=== PATIENT | male | born 1935 | race Caucasian/White ===

== ENCOUNTER 2018-08-03 08:40 | Inpatient (IN) ==
--- NOTE | 2018-08-03 08:49 | Emergency Department Note ---
Disposition Clinical Impression: Supratherapeutic INR, Hematuria, Afib Disposition: Admitted As Inpatient Condition: Fair General Adult HPI - General Stated complaint: Dizzy, blood in urine Time Seen by Provider: 08/03/18 08:47 - History of Present Illness HPI Narrative: 82 YO M here for painless hematuria and dizziness, with history of Afib and GI bleed. Patient started having gross hematuria for 1 week. Patient state the whole toilet bowl is red after urinating. Since onset he's been feeling dizzy. Patient denies pain with urination and discharge. He does state that he has increased urinary frequency and urgency. He does not have a history of kidney stones or UTI. Denies fever, N/V, muscle pain, SOB, CP, diaphoresis, night sweats and chills, abdominal pain, changes in bowel movement. He is retired and worked at [employer] in their [employer] for 25 years. Nonsmoker. He is on coumadin. - Related Data Home Medications Medication Instructions Recorded Confirmed Tamsulosin HCl [Flomax] 0.4 mg PO DAILY 07/01/18 08/03/18 Warfarin Sodium 2.5 mg PO WESA 07/01/18 08/03/18 Warfarin Sodium 5 mg PO SUMOTUTHFR 07/01/18 08/03/18 Previous Rx's Medication Instructions Recorded Digoxin [Lanoxin] 0.25 mg PO DAILY #30 tablet 07/04/18 Ferrous Sulfate 325 mg PO BIDWM 30 Days #60 tablet 07/04/18 Metoprolol XL (24 HR) Succ [Toprol 50 mg PO BID 28 Days #120 07/04/18 Xl] tab.er.24h Allergies Allergy/AdvReac Type Severity Reaction Status Date / Time No Known Allergies Allergy Verified 08/03/18 09:12 Past Medical History - Past Medical History Medical history: Reports: atrial fibrillation, hypertension, other Surgical history: Reports: no surgical history Psychiatric history: Reports: no psych history - Social History Smoking Status: Never smoker Smokeless Tobacco Status: No Alcohol use: Reports: none Drug use: Reports: none Physical Exam - General Limitations: no limitations - Head Head exam: atraumatic, normocephalic - Chest Chest inspection: Present: normal inspection, symmetric chest wall rise - Respiratory Respiratory exam: Present: normal lung sounds bilaterally. Absent: respiratory distress, wheezes - Cardiovascular Cardiovascular exam: Present: regular rate, normal rhythm, normal heart sounds - Back Exam Back exam: Absent: CVA tenderness (R), CVA tenderness (L) - Neurological Exam Neurological exam: Present: alert, oriented X3 - Psychiatric Psychiatric exam: Present: normal affect, normal mood Course Course Narrative: 82 YO M here for painless hematuria. Concerned for bladder cancer given painless hematuria. Also considering UTI or prostatitis based on increased urinary frequency. Will rule out cardiac pathology based on age. - Type and cross, CBC, CMP ordered - Abdominal CT - Urinalysis - Troponins, EKG, chest CT ordered - Reevaluation(s) Reevaluation #1: INR was 8 PTT was 89. Gave oral vitamin K 5. - Rectal exam and stool guaic done Reevaluation #2: Stool guaic negative - no bleeding - CT abdomen pelvis shows possible blood in kidneys - Spoke to hospitalist and they are okay to admit patient for supratherapeutic INR and hematuria. - Patient agrees with plan Vital Signs Pulse Rate 102 08/03/18 08:52 Respiratory Rate 18 08/03/18 08:52 Blood Pressure 147/105 08/03/18 08:52 O2 Sat by Pulse Oximetry 100 08/03/18 08:52 Temperature 98.3 F 08/03/18 09:07 Pulse Rate 98 08/03/18 11:03 Respiratory Rate 16 08/03/18 11:03 Blood Pressure 148/108 08/03/18 11:03 O2 Sat by Pulse Oximetry 98 08/03/18 11:03 Oxygen Delivery Oxygen Delivery Room Air Medical Decision Making - Lab Data Result diagrams: 08/03/18 09:20 08/03/18 09:20 Lab Results 08/03/18 08/03/18 08/03/18 Range/Units 09:20 09:20 09:20 WBC 5.7 (4.3-11.1) K/mcL RBC 4.03 L (4.19-5.50) M/mcL Hgb 11.0 L (12.9-16.9) g/dL Hct 33.8 L (37.5-50.1) % MCV 83.9 (83.0-100.0) fL MCH 27.3 L (28.0-33.3) pg MCHC 32.5 (31.6-35.5) g/dL RDW 13.9 (11.5-14.5) % Plt Count 202 (140-400) K/mcL MPV 9.4 (9.4-12.4) fL Immature Gran % 0.4 (0-4) % Seg Neutrophils % 74.7 % Lymphocytes % 9.9 % Monocytes % 9.0 % Eosinophils % 4.9 % Basophils % 1.1 % Neutrophils # 4.2 (1.6-8.9) K/mcL Lymphocytes # 0.6 (0.6-4.6) K/mcL Monocytes # 0.5 (0.0-1.3) K/mcL Eosinophils # 0.3 (0.0-0.6) K/mcL Basophils # 0.1 (0.0-0.2) K/mcL PT (9.4-12.1) Seconds INR Sodium 137 (136-145) mEq/L Potassium 4.2 (3.5-5.1) mEq/L Chloride 102 (98-107) mEq/L Carbon Dioxide 31 H (23-29) mEq/L BUN 14 (8-23) mg/dL Creatinine 0.98 (0.70-1.30) mg/dL Est GFR ( Amer) > 60 (> 60) Est GFR (Non-Af Amer) > 60 (> 60) BUN/Creatinine Ratio 14 (6-26) Glucose 114 H (70-105) mg/dL Calculated Osmolality 285 (280-300) Calcium 9.1 (8.6-10.3) mg/dL Total Bilirubin 1.0 (0.3-1.0) mg/dL AST 15 (13-39) Units/L ALT 11 (7-52) Units/L Alkaline Phosphatase 113 H (34-104) Units/L Troponin I < 0.03 (< 0.04) ng/mL Serum Total Protein 6.6 (6.4-8.9) g/dL Albumin 3.6 (3.5-5.7) g/dL Globulin 3.0 (2.4-3.5) g/dL Albumin/Globulin Ratio 1.2 (1.1-2.2) Stool Occult Bld Scrn (Negative) Digoxin (0.8-2.0) ng/mL Blood Type Antibody Screen 08/03/18 08/03/18 08/03/18 Range/Units 09:20 09:20 09:20 WBC (4.3-11.1) K/mcL RBC (4.19-5.50) M/mcL Hgb (12.9-16.9) g/dL Hct (37.5-50.1) % MCV (83.0-100.0) fL MCH (28.0-33.3) pg MCHC (31.6-35.5) g/dL RDW (11.5-14.5) % Plt Count (140-400) K/mcL MPV (9.4-12.4) fL Immature Gran % (0-4) % Seg Neutrophils % % Lymphocytes % % Monocytes % % Eosinophils % % Basophils % % Neutrophils # (1.6-8.9) K/mcL Lymphocytes # (0.6-4.6) K/mcL Monocytes # (0.0-1.3) K/mcL Eosinophils # (0.0-0.6) K/mcL Basophils # (0.0-0.2) K/mcL PT 89.9 H* (9.4-12.1) Seconds INR 8.0 H* Sodium (136-145) mEq/L Potassium (3.5-5.1) mEq/L Chloride (98-107) mEq/L Carbon Dioxide (23-29) mEq/L BUN (8-23) mg/dL Creatinine (0.70-1.30) mg/dL Est GFR ( Amer) (> 60) Est GFR (Non-Af Amer) (> 60) BUN/Creatinine Ratio (6-26) Glucose (70-105) mg/dL Calculated Osmolality (280-300) Calcium (8.6-10.3) mg/dL Total Bilirubin (0.3-1.0) mg/dL AST (13-39) Units/L ALT (7-52) Units/L Alkaline Phosphatase (34-104) Units/L Troponin I (< 0.04) ng/mL Serum Total Protein (6.4-8.9) g/dL Albumin (3.5-5.7) g/dL Globulin (2.4-3.5) g/dL Albumin/Globulin Ratio (1.1-2.2) Stool Occult Bld Scrn (Negative) Digoxin 1.6 (0.8-2.0) ng/mL Blood Type A POSITIVE Antibody Screen NEGATIVE 08/03/18 Range/Units 10:05 WBC (4.3-11.1) K/mcL RBC (4.19-5.50) M/mcL Hgb (12.9-16.9) g/dL Hct (37.5-50.1) % MCV (83.0-100.0) fL MCH (28.0-33.3) pg MCHC (31.6-35.5) g/dL RDW (11.5-14.5) % Plt Count (140-400) K/mcL MPV (9.4-12.4) fL Immature Gran % (0-4) % Seg Neutrophils % % Lymphocytes % % Monocytes % % Eosinophils % % Basophils % % Neutrophils # (1.6-8.9) K/mcL Lymphocytes # (0.6-4.6) K/mcL Monocytes # (0.0-1.3) K/mcL Eosinophils # (0.0-0.6) K/mcL Basophils # (0.0-0.2) K/mcL PT (9.4-12.1) Seconds INR Sodium (136-145) mEq/L Potassium (3.5-5.1) mEq/L Chloride (98-107) mEq/L Carbon Dioxide (23-29) mEq/L BUN (8-23) mg/dL Creatinine (0.70-1.30) mg/dL Est GFR ( Amer) (> 60) Est GFR (Non-Af Amer) (> 60) BUN/Creatinine Ratio (6-26) Glucose (70-105) mg/dL Calculated Osmolality (280-300) Calcium (8.6-10.3) mg/dL Total Bilirubin (0.3-1.0) mg/dL AST (13-39) Units/L ALT (7-52) Units/L Alkaline Phosphatase (34-104) Units/L Troponin I (< 0.04) ng/mL Serum Total Protein (6.4-8.9) g/dL Albumin (3.5-5.7) g/dL Globulin (2.4-3.5) g/dL Albumin/Globulin Ratio (1.1-2.2) Stool Occult Bld Scrn Negative (Negative) Digoxin (0.8-2.0) ng/mL Blood Type Antibody Screen - EKG Data EKG #1 EKG shows normal: axis, intervals, QRS complexes, ST-T waves Rate: tachycardia Rhythm: A.Fib Interpretation: no acute changes
[2018-08-03 09:39] LABS: Basophils # 0.1 K/mcL (0.0-0.2); Basophils % 1.1 %; Eosinophils # 0.3 K/mcL (0.0-0.6); Eosinophils % 4.9 %; Hematocrit 33.8 % (37.5-50.1); Immature Granulocytes % 0.4 % (0-4); Lymphocytes # 0.6 K/mcL (0.6-4.6); Lymphocytes % 9.9 %; Mean Corpuscular HGB Conc 32.5 g/dL (31.6-35.5); Mean Corpuscular Hemoglobin 27.3 pg (28.0-33.3); Mean Corpuscular Volume 83.9 fL (83.0-100.0); Mean Platelet Volume 9.4 fL (9.4-12.4); Monocytes # 0.5 K/mcL (0.0-1.3); Neutrophils # 4.2 K/mcL (1.6-8.9); Platelet Count 202 K/mcL (140-400); Red Blood Count 4.03 M/mcL (4.19-5.50); Red Cell Distribution Width 13.9 % (11.5-14.5); Segmented Neutrophils % 74.7 %
[2018-08-03 09:48] LABS: Prothrombin Time 89.9 Seconds (9.4-12.1)
[2018-08-03 09:57] LABS: Alanine Aminotransferase 11 Units/L (7-52); Albumin 3.6 g/dL (3.5-5.7); Albumin/Globulin Ratio 1.2 (1.1-2.2); Alkaline Phosphatase 113 Units/L (34-104); Aspartate Amino Transferase 15 Units/L (13-39); BUN/Creatinine Ratio 14 (6-26); Blood Urea Nitrogen 14 mg/dL (8-23); Calcium 9.1 mg/dL (8.6-10.3); Carbon Dioxide 31 mEq/L (23-29); Chloride 102 mEq/L (98-107); Glucose 114 mg/dL (70-105); Osmolality,Calculated 285 (280-300); Potassium 4.2 mEq/L (3.5-5.1); Sodium 137 mEq/L (136-145); Total Protein 6.6 g/dL (6.4-8.9); eGFR For Non-African Americans > 60 (> 60)
[2018-08-03] MEDS ORDERED: *HR* Phytonadione 5 MG TABLET PO ONE (10:15)
--- NOTE | 2018-08-03 11:19 | Emergency Department Note ---
Disposition Clinical Impression: Supratherapeutic INR Hematuria Qualifiers: Hematuria type: gross Qualified Code(s): R31.0 - Gross hematuria Disposition: Admitted As Inpatient Referrals: Yong Mayers DO [Primary Care Provider] - General Adult HPI - General Chief complaint: ED Dizziness Stated complaint: Dizzy, blood in urine Time Seen by Provider: 08/03/18 08:47 Source: EMS Limitations: no limitations - History of Present Illness Pain Scale: 0 - Related Data Home Medications Medication Instructions Recorded Confirmed Tamsulosin HCl [Flomax] 0.4 mg PO DAILY 07/01/18 08/03/18 Warfarin Sodium 2.5 mg PO WESA 07/01/18 08/03/18 Warfarin Sodium 5 mg PO SUMOTUTHFR 07/01/18 08/03/18 Previous Rx's Medication Instructions Recorded Digoxin [Lanoxin] 0.25 mg PO DAILY #30 tablet 07/04/18 Ferrous Sulfate 325 mg PO BIDWM 30 Days #60 tablet 07/04/18 Metoprolol XL (24 HR) Succ [Toprol 50 mg PO BID 28 Days #120 07/04/18 Xl] tab.er.24h Allergies Allergy/AdvReac Type Severity Reaction Status Date / Time No Known Allergies Allergy Verified 08/03/18 09:12 Past Medical History - Past Medical History Medical history: Reports: atrial fibrillation, hypertension, other Surgical history: Reports: no surgical history Psychiatric history: Reports: no psych history - Social History Smoking Status: Never smoker Smokeless Tobacco Status: No Alcohol use: Reports: none Drug use: Reports: none Physical Exam - General Limitations: no limitations General appearance: alert, in no apparent distress Course Vital Signs Pulse Rate 102 08/03/18 08:52 Respiratory Rate 18 08/03/18 08:52 Blood Pressure 147/105 08/03/18 08:52 O2 Sat by Pulse Oximetry 100 08/03/18 08:52 Temperature 98.3 F 08/03/18 09:07 Pulse Rate 98 08/03/18 11:03 Respiratory Rate 16 08/03/18 11:03 Blood Pressure 148/108 08/03/18 11:03 O2 Sat by Pulse Oximetry 98 08/03/18 11:03 Oxygen Delivery Oxygen Delivery Room Air Medical Decision Making - Lab Data Result diagrams: 08/03/18 09:20 08/03/18 09:20 Lab Results 08/03/18 08/03/18 08/03/18 Range/Units 09:20 09:20 09:20 WBC 5.7 (4.3-11.1) K/mcL RBC 4.03 L (4.19-5.50) M/mcL Hgb 11.0 L (12.9-16.9) g/dL Hct 33.8 L (37.5-50.1) % MCV 83.9 (83.0-100.0) fL MCH 27.3 L (28.0-33.3) pg MCHC 32.5 (31.6-35.5) g/dL RDW 13.9 (11.5-14.5) % Plt Count 202 (140-400) K/mcL MPV 9.4 (9.4-12.4) fL Immature Gran % 0.4 (0-4) % Seg Neutrophils % 74.7 % Lymphocytes % 9.9 % Monocytes % 9.0 % Eosinophils % 4.9 % Basophils % 1.1 % Neutrophils # 4.2 (1.6-8.9) K/mcL Lymphocytes # 0.6 (0.6-4.6) K/mcL Monocytes # 0.5 (0.0-1.3) K/mcL Eosinophils # 0.3 (0.0-0.6) K/mcL Basophils # 0.1 (0.0-0.2) K/mcL PT (9.4-12.1) Seconds INR Sodium 137 (136-145) mEq/L Potassium 4.2 (3.5-5.1) mEq/L Chloride 102 (98-107) mEq/L Carbon Dioxide 31 H (23-29) mEq/L BUN 14 (8-23) mg/dL Creatinine 0.98 (0.70-1.30) mg/dL Est GFR ( Amer) > 60 (> 60) Est GFR (Non-Af Amer) > 60 (> 60) BUN/Creatinine Ratio 14 (6-26) Glucose 114 H (70-105) mg/dL Calculated Osmolality 285 (280-300) Calcium 9.1 (8.6-10.3) mg/dL Total Bilirubin 1.0 (0.3-1.0) mg/dL AST 15 (13-39) Units/L ALT 11 (7-52) Units/L Alkaline Phosphatase 113 H (34-104) Units/L Troponin I < 0.03 (< 0.04) ng/mL Serum Total Protein 6.6 (6.4-8.9) g/dL Albumin 3.6 (3.5-5.7) g/dL Globulin 3.0 (2.4-3.5) g/dL Albumin/Globulin Ratio 1.2 (1.1-2.2) Stool Occult Bld Scrn (Negative) Digoxin (0.8-2.0) ng/mL Blood Type Antibody Screen 08/03/18 08/03/18 08/03/18 Range/Units 09:20 09:20 09:20 WBC (4.3-11.1) K/mcL RBC (4.19-5.50) M/mcL Hgb (12.9-16.9) g/dL Hct (37.5-50.1) % MCV (83.0-100.0) fL MCH (28.0-33.3) pg MCHC (31.6-35.5) g/dL RDW (11.5-14.5) % Plt Count (140-400) K/mcL MPV (9.4-12.4) fL Immature Gran % (0-4) % Seg Neutrophils % % Lymphocytes % % Monocytes % % Eosinophils % % Basophils % % Neutrophils # (1.6-8.9) K/mcL Lymphocytes # (0.6-4.6) K/mcL Monocytes # (0.0-1.3) K/mcL Eosinophils # (0.0-0.6) K/mcL Basophils # (0.0-0.2) K/mcL PT 89.9 H* (9.4-12.1) Seconds INR 8.0 H* Sodium (136-145) mEq/L Potassium (3.5-5.1) mEq/L Chloride (98-107) mEq/L Carbon Dioxide (23-29) mEq/L BUN (8-23) mg/dL Creatinine (0.70-1.30) mg/dL Est GFR ( Amer) (> 60) Est GFR (Non-Af Amer) (> 60) BUN/Creatinine Ratio (6-26) Glucose (70-105) mg/dL Calculated Osmolality (280-300) Calcium (8.6-10.3) mg/dL Total Bilirubin (0.3-1.0) mg/dL AST (13-39) Units/L ALT (7-52) Units/L Alkaline Phosphatase (34-104) Units/L Troponin I (< 0.04) ng/mL Serum Total Protein (6.4-8.9) g/dL Albumin (3.5-5.7) g/dL Globulin (2.4-3.5) g/dL Albumin/Globulin Ratio (1.1-2.2) Stool Occult Bld Scrn (Negative) Digoxin 1.6 (0.8-2.0) ng/mL Blood Type A POSITIVE Antibody Screen NEGATIVE 08/03/18 Range/Units 10:05 WBC (4.3-11.1) K/mcL RBC (4.19-5.50) M/mcL Hgb (12.9-16.9) g/dL Hct (37.5-50.1) % MCV (83.0-100.0) fL MCH (28.0-33.3) pg MCHC (31.6-35.5) g/dL RDW (11.5-14.5) % Plt Count (140-400) K/mcL MPV (9.4-12.4) fL Immature Gran % (0-4) % Seg Neutrophils % % Lymphocytes % % Monocytes % % Eosinophils % % Basophils % % Neutrophils # (1.6-8.9) K/mcL Lymphocytes # (0.6-4.6) K/mcL Monocytes # (0.0-1.3) K/mcL Eosinophils # (0.0-0.6) K/mcL Basophils # (0.0-0.2) K/mcL PT (9.4-12.1) Seconds INR Sodium (136-145) mEq/L Potassium (3.5-5.1) mEq/L Chloride (98-107) mEq/L Carbon Dioxide (23-29) mEq/L BUN (8-23) mg/dL Creatinine (0.70-1.30) mg/dL Est GFR ( Amer) (> 60) Est GFR (Non-Af Amer) (> 60) BUN/Creatinine Ratio (6-26) Glucose (70-105) mg/dL Calculated Osmolality (280-300) Calcium (8.6-10.3) mg/dL Total Bilirubin (0.3-1.0) mg/dL AST (13-39) Units/L ALT (7-52) Units/L Alkaline Phosphatase (34-104) Units/L Troponin I (< 0.04) ng/mL Serum Total Protein (6.4-8.9) g/dL Albumin (3.5-5.7) g/dL Globulin (2.4-3.5) g/dL Albumin/Globulin Ratio (1.1-2.2) Stool Occult Bld Scrn Negative (Negative) Digoxin (0.8-2.0) ng/mL Blood Type Antibody Screen Attestation Statement - Attestation Attestation: I examined this patient and my medical decision-making was reviewed with the Resident Physician. I agree with the documented findings, disposition and treatment plan as described except to the extent set forth below. 82 year old male prsents to the Ed iwth complaints of hematuria and abdominal pian and is currently on coumadin. PAtinet states that this has hapened in the past and was msot recently evlauated fora GI bleed although the rectal exam today is negative for occult blood. Patient has an INRof 8 and gross hematuria on exam and is a fall risk at home. We will admit to medicine. vitamin K PO 5mg given
[2018-08-03] MEDS ORDERED: Naloxone 0.4 MG/ML INJ IVP PRN (13:44)
--- NOTE | 2018-08-03 14:12 | Internal Med History&Physical ---
Date of Encounter: 08/03/18 Time of Encounter: 13:15 Internal Medicine - H&P: HPI Chief complaint: Hematuria Admitted From: Home Plans for Post Hospital Care: Home History of present illness: Mr. Reich is a 82 year old male with past medical history significant for atrial fibrillation, hypertension, and BPH who presents for 7-10 day history of blood in his urine getting progressively worse. Denies any clots in urine. No dysuria but does say he has had urinary frequency since he started noticing the blood. Also complains of intermittent dizziness since noticing the blood. Denies any chest pain, abdominal pain, or shortness of breath. No blood in stool reported, last bowel movement was today. Patient on coumadin for afib but states it has been around 30 days since last INR check. Was recently admitted to hospital and son was supposed to start living with patient upon discharge but patient reports he is still living alone. Also reports he has had a decreased appetite and has noticed six pound weight loss in the last month. Discussed patient with Dr Goodman. Past Med Surg Social Fam HX - Past Medical History Medical history: atrial fibrillation, hypertension, other Additional medical history: BPH Psychiatric history: no psych history - Past Surgical History Surgical History: no surgical history - Social History Smoking Status: Never smoker Smokeless Tobacco Status: No Alcohol use: none Drug use: none - Family History Father Living Status: Mother Living Status: Internal Medicine - H&P: Meds Tamsulosin HCl [Flomax] 0.4 mg PO DAILY 07/01/18 [History] Warfarin Sodium 2.5 mg PO WESA 07/01/18 [History] Warfarin Sodium 5 mg PO SUMOTUTHFR 07/01/18 [History] Digoxin [Lanoxin] 0.25 mg PO DAILY #30 tablet 07/04/18 [Rx] Ferrous Sulfate 325 mg PO BIDWM 30 Days #60 tablet 07/04/18 [Rx] Metoprolol XL (24 HR) Succ [Toprol Xl] 50 mg PO BID 28 Days #120 tab.er.24h [Rx] 3 Allergy/AdvReac Type Severity Reaction Status Date / Time No Known Allergies Allergy Verified 08/03/18 09:12 All Systems PM: A 10-system review of systems was performed and is negative for pertinent findings except as documented above in the HPI. - Constitutional Vitals: Temp Pulse Resp BP Pulse Ox 98.1 F 91 14 165/72 96 08/03/18 13:07 08/03/18 13:07 08/03/18 13:07 08/03/18 13:07 08/03/18 13:07 Exam: General: Alert and oriented. Skin:Normal color, no rash, no lesions. HEENT:EOM, pupils equal, round and reactive. Cardiovascular:Irregular rhythm, no rubs, murmurs or gallops. No JVD. Lungs:Normal breath sounds, no wheezes or crackles. Abdomen:Soft, non-tender, no rigidity. Extremities:No deformity, no edema or tenderness, no joint swelling or clubbing. Neurological:Normal cognition and motor skills. Pulses:Carotid and radial pulses normal +2. Rest of the physical exam is non contributory. Internal Med - H&P Results - Labs CBC & Chem 7: 08/03/18 09:20 08/03/18 09:20 - Assessment and plan (1) Supratherapeutic INR Current Visit: Yes Status: Acute Assessment and plan: Mephyton given in ER. Repeat labs in a.m. Hold coumadin. Up with assist only. Stool guiac negative. Will need INR teaching if coumadin restarted. (2) Hematuria Current Visit: Yes Status: Acute Assessment and plan: Continue to encourage to urinate. Monitor for any other urinary changes including clots in urine. If not resolved with supratherapeutic INR plan as above, will need urology consult. Qualifiers: Hematuria type: gross Qualified Code(s): R31.0 - Gross hematuria (3) Weight loss Current Visit: Yes Status: Acute Assessment and plan: Nutrition consulted for reported decreased appetite with weight loss. Encourage oral intake. (4) Risk for falls Current Visit: Yes Status: Chronic Assessment and plan: Pt consulted. manager creative services consulted for possible home health services and safe discharge arrangements. (5) UTI (urinary tract infection) Current Visit: Yes Status: Suspected Assessment and plan: Urinalysis ordered due to reported urinary frequency. Qualifiers: Urinary tract infection type: site unspecified Hematuria presence: with hematuria Qualified Code(s): N39.0 - Urinary tract infection, site not specified; R31.9 - Hematuria, unspecified - Time Spent With Patient Total time spent is greater than 50% in coordination of care (as documented) at patient's floor/unit and/or counseling patient:
[2018-08-03] MEDS: Ondansetron 4 MG/2 ML VIAL IVP PRN (18:08)
[2018-08-03] MEDS: Metoprolol XL (24 HR) Succ 50 MG TAB.ER.24H PO SCH (20:51)
[2018-08-03 21:37] LABS: Bilirubin,Urine Small (Negative); Blood,Urine Large (Negative); Clarity,Urine Cloudy (Clear); Color,Urine Red (Yellow); Glucose,Urine (UA) Normal (Normal); Ketones,Urine Trace mg/dL (Negative); Leukocyte Esterase,Urine Trace (Negative); Nitrite,Urine Negative (Negative); Protein,Urine 100 mg/dL (Neg-Trace); Specific Gravity,Urine 1.009 (1.010-1.025); Urobilinogen,Urine Normal (Normal)
[2018-08-04] MEDS: Ondansetron 4 MG/2 ML VIAL IVP PRN ×2 (01:23→09:40)
[2018-08-04 07:33] LABS: Basophils % 0.2 %; Hematocrit 36.1 % (37.5-50.1); Hemoglobin 11.7 g/dL (12.9-16.9); Immature Granulocytes % 0.4 % (0-4); Lymphocytes # 0.7 K/mcL (0.6-4.6); Lymphocytes % 6.6 %; Mean Corpuscular HGB Conc 32.4 g/dL (31.6-35.5); Mean Corpuscular Hemoglobin 27.1 pg (28.0-33.3); Mean Corpuscular Volume 83.6 fL (83.0-100.0); Mean Platelet Volume 9.6 fL (9.4-12.4); Monocytes # 0.6 K/mcL (0.0-1.3); Monocytes % 5.8 %; Neutrophils # 8.6 K/mcL (1.6-8.9); Platelet Count 262 K/mcL (140-400); Red Blood Count 4.32 M/mcL (4.19-5.50); Red Cell Distribution Width 13.8 % (11.5-14.5)
[2018-08-04 07:42] LABS: INR 4.9; Prothrombin Time 55.8 Seconds (9.4-12.1)
[2018-08-04 07:55] LABS: BUN/Creatinine Ratio 18 (6-26); Blood Urea Nitrogen 17 mg/dL (8-23); Calcium 9.4 mg/dL (8.6-10.3); Carbon Dioxide 29 mEq/L (23-29); Chloride 102 mEq/L (98-107); Glucose 141 mg/dL (70-105); Osmolality,Calculated 290 (280-300); Potassium 4.3 mEq/L (3.5-5.1); Sodium 138 mEq/L (136-145); eGFR For Non-African Americans > 60 (> 60)
[2018-08-04] MEDS ORDERED: *HR* Digoxin 0.25 MG TABLET PO SCH (09:00)
[2018-08-04] MEDS: Metoprolol XL (24 HR) Succ 50 MG TAB.ER.24H PO SCH (09:40)
[2018-08-04] MEDS ORDERED: Acetaminophen 325 MG TABLET PO PRN (12:28)
--- NOTE | 2018-08-04 13:00 | Internal Med Progress Note ---
Hospitalist Progress Note - Encounter Date of Encounter: 08/04/18 Time of Encounter: 12:58 - Subjective Interval History: Pt's oldest daughter at bedside and states pt has slowly deteriorated since the passing of their mother. States pt has had increasing memory changes. He is reporting a ANDRADE today 06/20. Family unsure if he fell or not. He denies fever, chills, N/V or diarrhea. Denies CP or SOB. - Exam Vitals: Temp Pulse Resp BP Pulse Ox 98.3 F 107 16 149/79 98 08/04/18 11:53 08/04/18 11:53 08/04/18 11:53 08/04/18 11:53 08/04/18 11:53 Exam: General: Alert and oriented. Skin:Normal color, no rash, no lesions. HEENT:EOM, pupils equal, round and reactive. Cardiovascular:Irregularly irregular rhythm, no rubs, murmurs or gallops. No JVD. Lungs:Normal breath sounds, no wheezes or crackles. Abdomen:Soft, non-tender, no rigidity. Extremities:No deformity, no edema or tenderness, no joint swelling or clubbing. Neurological:Normal cognition and motor skills. Pulses:Carotid and radial pulses normal +2. Rest of the physical exam is non contributory. - Assessment and Plan (1) Hematuria Current Visit: Yes Status: Acute Assessment and Plan: INR supra therapeutic. Given reversal in ED. Will continue to monitor urinary out put. Consulting urology. (2) Supratherapeutic INR Current Visit: Yes Status: Acute Assessment and Plan: INR on admission 8.0 down to 4.9 this am. Given reversal, Mephyotn, in ED. Positive hematuria but stool guiac neg. (3) Altered mental status Current Visit: Yes Status: Acute Assessment and Plan: Daughter states he appears to be more confused than usual. (4) Weight loss Current Visit: Yes Status: Acute Assessment and Plan: Family reports 6lbs weight loss and decreased appetite. Consult nib adjuster. (5) Risk for falls Current Visit: Yes Status: Chronic Assessment and Plan: fall precaution (6) Afib Current Visit: Yes Status: Chronic Assessment and Plan: On Digoxin and Coumadin but Coumadin on hold for now. (7) Acute blood loss anemia Current Visit: Yes Status: Acute Assessment and Plan: Hgb stable at the moment at 11.0. Will continue to monitor. (8) BPH (benign prostatic hyperplasia) Current Visit: Yes Status: Acute Assessment and Plan: On flomax and adding Proscar. Consulting Urology to see. DVT Prophylaxis: On Coumadin but on hold. - Summary of Assessment and Plan Summary of Assessment and Plan: Mr. Reich is a 82 year old male with past medical history significant for atrial fibrillation, hypertension, and BPH who presents for 7-10 day history of blood in his urine getting progressively worse. Denies any clots in urine. No dysuria but does say he has had urinary frequency since he started noticing the blood. Also complains of intermittent dizziness since noticing the blood. He is on flomax for BPH. He also on Coumadin for afib. - Time Spent with Patient Total time spent is greater than 50% in coordination of care (as documented) at patient's floor/unit and/or counseling patient: 25 - 35 minutes Plan of Care Discussed with: patient Internal Medicine: Result - Labs CBC & Chem 7: 08/04/18 07:03 08/04/18 07:03 Labs: Short CBC 08/04/18 Range/Units 07:03 WBC 9.9 D (4.3-11.1) K/mcL Hgb 11.7 L (12.9-16.9) g/dL Hct 36.1 L (37.5-50.1) % Plt Count 262 (140-400) K/mcL Neutrophils # 8.6 (1.6-8.9) K/mcL BMP 08/04/18 07:03 Sodium 138 Potassium 4.3 Chloride 102 Carbon Dioxide 29 BUN 17 Creatinine 0.96 Glucose 141 H Calcium 9.4 Urine 08/03/18 Range/Units 20:23 Urine Color Red A (Yellow) Urine Clarity Cloudy A (Clear) Urine pH 6.0 (5.0-8.0) pH Units Ur Specific [place] 1.009 L (1.010-1.025) Urine Protein 100 H (Neg-Trace) mg/dL Urine Glucose (UA) Normal (Normal) mg/dL - ABG Interpretation ABG results: PT/INR, D-dimer PT 55.8 Seconds (9.4-12.1) H* 08/04/18 07:03 Consult Discharge Plan - Plan Referrals: Yong Mayers DO [Primary Care Provider] - (1) Hematuria Qualifiers: Hematuria type: gross Qualified Code(s): R31.0 - Gross hematuria
--- NOTE | 2018-08-04 13:55 | Event Note ---
Date of Encounter: 08/04/18 Time of Encounter: 13:53 went to see patient on 3a. he was at CT scan and not in the room. reviewed CT scan abd/pelvis. large prostate. no other concerning Gu findings. talked to hospitalists. start finasteride, hold coumadin if possible will see pt for official consult tomorrow.
[2018-08-04] MEDS ORDERED: Isovue-370 500 ML INFUS..BTL IV ONE (14:46)
--- NOTE | 2018-08-04 14:53 | Urology - Consult Note ---
<Krupa Jara N - Last Filed: 08/04/18 14:46> Date of Encounter: 08/04/18 Time of Encounter: 14:46 - Assessment and Plan (1) Hematuria Current Visit: Yes Status: Acute Assessment and plan: Patient is an 82-year-old male who presents with a history of gross hematuria. I explained to the family that the hematuria is likely due to the markedly elevated INR and increased vascularity from the enlarged prostate. Due to the recent finding of a large brain mass, the patient's family is aware that he will likely be transferred to a facility that has neurosurgical specialty available. I placed an order to collect serial urine samples to evaluate progression of hematuria. I encouraged hydration and anticipate hematuria to improve as the PT and INR improve. Qualifiers: Hematuria type: gross Qualified Code(s): R31.0 - Gross hematuria Urology CN:HPI Consult date: 08/04/18 Reason for consult Urology: Gross Hematuria History of present illness: Patient is an 82-year-old male who presents with a history of gross hematuria. Patient has a history of atrial fibrillation, and he is being managed with Coumadin. Patient has not had INR checked for greater than 30 days, and on admission, INR is markedly elevated at 8, PT 89.9. Patient does not have a smoking history, and this is the first instance of gross blood in the urine. Patient denies history of renal stones. Patient is voiding without difficulty, and urine is fluctuating between fruit punch and pink lemonade tinged. Patient denies passing any blood clots or ketchup appearance to urine. Patient has undergone CT of the abdomen and pelvis which does reveal an enlarged prostate, otherwise is unremarkable for the genitourinary system. During history and physical examination, the patient is sleeping, and the majority of his history was collected from his 2 daughters and friend present at bedside. 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 Patient will likely be transferred to a hospital with neurosurgical availability. Past Med Surg Social Fam HX - Past Medical History Medical history: atrial fibrillation, hypertension, other Additional medical history: BPH Psychiatric history: no psych history - Past Surgical History Surgical History: no surgical history - Social History Smoking Status: Never smoker Smokeless Tobacco Status: No Alcohol use: none Drug use: none - Family History Father Living Status: Mother Living Status: Medications and Allergies Tamsulosin HCl [Flomax] 0.4 mg PO DAILY 07/01/18 [History] Digoxin [Lanoxin] 0.25 mg PO DAILY #30 tablet 07/04/18 [Rx] Ferrous Sulfate 325 mg PO BIDWM 30 Days #60 tablet 07/04/18 [Rx] Metoprolol XL (24 HR) Succ [Toprol Xl] 50 mg PO BID 28 Days #120 tab.er.24h [Rx] Finasteride [Proscar] 5 mg PO DAILY tablet 08/04/18 [Rx] 3 Allergy/AdvReac Type Severity Reaction Status Date / Time No Known Allergies Allergy Verified 08/03/18 09:12 Review of Systems - Constitutional fatigue, no chills, no fever(s) - EENT Nose, mouth and throat: headache(s), no dizziness - Cardiovascular no chest pain, no diaphoresis, no dyspnea - Respiratory no cough, no dyspnea - Gastrointestinal no abdominal pain, no nausea, no vomiting - Genitourinary hematuria, no change in urinary stream, no difficulty urinating, no dysuria, no flank pain, no urinary frequency, no urinary hesitancy, no urinary urgency - Musculoskeletal no back pain, no muscle weakness - Integumentary unusual bruising, no erythema, no rash - Neurological confusion, weakness, no syncope - Psychiatric confusion, no anxiety - Hematologic/Lymphatic easy bleeding, easy bruising - Allergic/Immunologic no throat swelling, no wheezing Exam Initial Vital Signs Pulse Resp BP Pulse Ox 102 18 147/105 100 08/03/18 08:52 08/03/18 08:52 08/03/18 08:52 08/03/18 08:52 - General physical appearance Present: well developed, no distress, no pain - Eyes Present: PERRL, normal ocular movement - ENT Present: normal nares, no hearing loss, no congestion - Neck Present: no masses, trachea midline - Respiratory Present: normal respiratory effort - Cardiovascular Cardiovascular exam IM: RRR - Abdomen Abdomen: Present: soft, non tender - Integumentary Present: no rash, no abnormal pigmentation Urology Results - Labs 08/04/18 07:03 08/04/18 07:03 Abnormal lab results Hgb 11.7 g/dL (12.9-16.9) L 08/04/18 07:03 Hct 36.1 % (37.5-50.1) L 08/04/18 07:03 MCH 27.1 pg (28.0-33.3) L 08/04/18 07:03 PT 55.8 Seconds (9.4-12.1) H* 08/04/18 07:03 INR 4.9 H* 08/04/18 07:03 Glucose 141 mg/dL (70-105) H 08/04/18 07:03 Alkaline Phosphatase 113 Units/L (34-104) H 08/03/18 09:20 Ur Specimen Adequacy See below A 08/03/18 20:23 Urine Color Red (Yellow) A 08/03/18 20:23 Urine Clarity Cloudy (Clear) A 08/03/18 20:23 Ur Specific [place] 1.009 (1.010-1.025) L 08/03/18 20:23 Urine Protein 100 mg/dL (Neg-Trace) H 08/03/18 20:23 Urine Ketones Trace mg/dL (Negative) H 08/03/18 20:23 Urine Blood Large (Negative) H 08/03/18 20:23 Urine Bilirubin Small (Negative) H 08/03/18 20:23 Ur Leukocyte Esterase Trace (Negative) H 08/03/18 20:23 Diabetes panel 08/04/18 Range/Units 07:03 Sodium 138 (136-145) mEq/L Potassium 4.3 (3.5-5.1) mEq/L Chloride 102 (98-107) mEq/L Carbon Dioxide 29 (23-29) mEq/L BUN 17 (8-23) mg/dL Creatinine 0.96 (0.70-1.30) mg/dL Glucose 141 H (70-105) mg/dL Calcium 9.4 (8.6-10.3) mg/dL Calcium panel 08/04/18 Range/Units 07:03 Calcium 9.4 (8.6-10.3) mg/dL Pituitary panel 08/04/18 Range/Units 07:03 Sodium 138 (136-145) mEq/L Potassium 4.3 (3.5-5.1) mEq/L Chloride 102 (98-107) mEq/L Carbon Dioxide 29 (23-29) mEq/L BUN 17 (8-23) mg/dL Creatinine 0.96 (0.70-1.30) mg/dL Glucose 141 H (70-105) mg/dL Calcium 9.4 (8.6-10.3) mg/dL Adrenal panel 08/04/18 Range/Units 07:03 Sodium 138 (136-145) mEq/L Potassium 4.3 (3.5-5.1) mEq/L Chloride 102 (98-107) mEq/L Carbon Dioxide 29 (23-29) mEq/L BUN 17 (8-23) mg/dL Creatinine 0.96 (0.70-1.30) mg/dL Glucose 141 H (70-105) mg/dL Calcium 9.4 (8.6-10.3) mg/dL All other labs normal. - Imaging CT scan - abdomen: report reviewed, image reviewed CT scan - pelvis: report reviewed, image reviewed Consult Discharge Plan - Plan Referrals: Yong Mayers DO [Primary Care Provider] - <Adan Cervantes - Last Filed: 08/04/18 18:13> Date of Encounter: 08/04/18 - Assessment and Plan (1) Hematuria Current Visit: Yes Status: Acute Assessment and plan: pt seen and examined with PA. due to recent findings of a brain tumor pt is being transferred to [facility]. Defer all urologic intervention to outside facility. My plan was to start finasteride and follow the urine once his INR normalized. If the hematuria did not stop he would have potentially required a catheter placement or cystoscopy while hospitalized. I strongly suspect the hematuria was from BPH with Coumadin toxicity. At some point he would require cystoscopy for further evaluation but we will defer at this point. Qualifiers: Hematuria type: gross Qualified Code(s): R31.0 - Gross hematuria Exam Initial Vital Signs Pulse Resp BP Pulse Ox 102 18 147/105 100 08/03/18 08:52 08/03/18 08:52 08/03/18 08:52 08/03/18 08:52 Urology Results - Labs 08/04/18 07:03 08/04/18 07:03 Abnormal lab results Hgb 11.7 g/dL (12.9-16.9) L 08/04/18 07:03 Hct 36.1 % (37.5-50.1) L 08/04/18 07:03 MCH 27.1 pg (28.0-33.3) L 08/04/18 07:03 PT 55.8 Seconds (9.4-12.1) H* 08/04/18 07:03 INR 4.9 H* 08/04/18 07:03 Glucose 141 mg/dL (70-105) H 08/04/18 07:03 Alkaline Phosphatase 113 Units/L (34-104) H 08/03/18 09:20 Ur Specimen Adequacy See below A 08/03/18 20:23 Urine Color Red (Yellow) A 08/03/18 20:23 Urine Clarity Cloudy (Clear) A 08/03/18 20:23 Ur Specific [place] 1.009 (1.010-1.025) L 08/03/18 20:23 Urine Protein 100 mg/dL (Neg-Trace) H 08/03/18 20:23 Urine Ketones Trace mg/dL (Negative) H 08/03/18 20:23 Urine Blood Large (Negative) H 08/03/18 20:23 Urine Bilirubin Small (Negative) H 08/03/18 20:23 Ur Leukocyte Esterase Trace (Negative) H 08/03/18 20:23 Diabetes panel 08/04/18 Range/Units 07:03 Sodium 138 (136-145) mEq/L Potassium 4.3 (3.5-5.1) mEq/L Chloride 102 (98-107) mEq/L Carbon Dioxide 29 (23-29) mEq/L BUN 17 (8-23) mg/dL Creatinine 0.96 (0.70-1.30) mg/dL Glucose 141 H (70-105) mg/dL Calcium 9.4 (8.6-10.3) mg/dL Calcium panel 08/04/18 Range/Units 07:03 Calcium 9.4 (8.6-10.3) mg/dL Pituitary panel 08/04/18 Range/Units 07:03 Sodium 138 (136-145) mEq/L Potassium 4.3 (3.5-5.1) mEq/L Chloride 102 (98-107) mEq/L Carbon Dioxide 29 (23-29) mEq/L BUN 17 (8-23) mg/dL Creatinine 0.96 (0.70-1.30) mg/dL Glucose 141 H (70-105) mg/dL Calcium 9.4 (8.6-10.3) mg/dL Adrenal panel 08/04/18 Range/Units 07:03 Sodium 138 (136-145) mEq/L Potassium 4.3 (3.5-5.1) mEq/L Chloride 102 (98-107) mEq/L Carbon Dioxide 29 (23-29) mEq/L BUN 17 (8-23) mg/dL Creatinine 0.96 (0.70-1.30) mg/dL Glucose 141 H (70-105) mg/dL Calcium 9.4 (8.6-10.3) mg/dL All other labs normal.
--- NOTE | 2018-08-04 16:23 | Discharge Summary ---
- NOTES TO OUTPATIENT PROVIDER Notes to Outpatient Provider: PCP in 5 to 7 days Orders not resulted at time of discharge: Pending orders 08/04/18 MR head/brain wo/w con [MR] Stat 08/04/18 15:43 PLASMA [BBK] Stat Date of Encounter: 08/04/18 Time of Encounter: 16:21 - Discharge Diagnosis (1) Brain bleed Priority: Primary Status: Acute Assessment and Plan: Pt's daughter noted that pt has been increasingly confused. Pt was also reported to be having 8/10 headache. STAT non-contrast CT head this morning showed hemorrhagic 5 cm brain mass. Discussed with radiologist and recommending MRI brain. Will check MRI brain without and with contrast. Discussed with family and recommend transfer to facility with neuro surgeon. Family requesting transfer to [facility]. Neuro surgeon, Dr. Arce accepted the patient to [facility]. STAT Non-contrast CT head CT/CT head/brain wo con IMPRESSION: 5 cm left cerebellar hemorrhagic mass. The differential includes hemorrhagic primary brain neoplasm and solitary metastasis. MRI brain MR/MR head/brain wo/w con IMPRESSION: 1. Acute left cerebellar intraparenchymal hematoma measuring 5.1 x 3.7 x 3.3 cm. Surrounding vasogenic edema and mass effect with partial effacement of the 4th ventricle. No evidence of hydrocephalus. No enhancement within the mass. 7 mm rightward shift of the midline cerebellum. 2. Parenchymal volume loss and sequela of mild chronic microvascular ischemic changes. The findings were sent to the Radiology Results Communication [facility] at 4:40 pm on 08/04/2018to be communicated to a licensed caregiver. D/ / 08/04/2018 17:33:26 Ivelisse Zelaya MD / reinaldo (2) Supratherapeutic INR Priority: Primary Status: Acute Assessment and Plan: INR on admission 8.0 down to 4.9 this am. Given reversal, Mephyotn, in ED. Positive hematuria but stool guiac neg. Will give 4 units of FFP STAT and recheck INR (3) Altered mental status Priority: Primary Status: Acute Assessment and Plan: Pt's mentation is worse per daughter. CT brain showing mass and hemorrhage. MRI brain as above. Family denies any previous hxx of cancer they are aware of. Qualifiers: Qualified Code(s): R41.82 - Altered mental status, unspecified (4) Risk for falls Priority: Secondary Status: Chronic Assessment and Plan: fall precaution. (5) Afib Priority: Secondary Status: Chronic Assessment and Plan: Coumadin on hold. Giving pt 4 units of FPF for reversal. Qualifiers: Qualified Code(s): I48.91 - Unspecified atrial fibrillation (6) Acute blood loss anemia Priority: Secondary Status: Acute Assessment and Plan: Hgb stable at the moment at 11.0. Will continue to monitor. (7) Hematuria Priority: Primary Status: Acute Assessment and Plan: Seen by Urology service and monitoring. Qualifiers: Hematuria type: gross Qualified Code(s): R31.0 - Gross hematuria (8) BPH (benign prostatic hyperplasia) Priority: Secondary Status: Acute Assessment and Plan: On Flomax and Proscar Qualifiers: Qualified Code(s): N40.0 - Benign prostatic hyperplasia without lower urinary tract symptoms (9) Weight loss Priority: Secondary Status: Acute Assessment and Plan: Family reports 6lbs weight loss and decreased appetite. Consult fork repairer. Hospital course: Mr. Reich is a 82 year old male with past medical history significant for atrial fibrillation, hypertension, and BPH who presents for 7-10 day history of blood in his urine getting progressively worse. Denies any clots in urine. No dysuria but does say he has had urinary frequency since he started noticing the blood. Also complains of intermittent dizziness since noticing the blood. He is on flomax for BPH. He also on Coumadin for afib. STAT NON-contrast CT head IMPRESSION: 5 cm left cerebellar hemorrhagic mass. The differential includes hemorrhagic primary brain neoplasm and solitary metastasis. MRI brain without and with contrast MR/MR head/brain wo/w con IMPRESSION: 1. Acute left cerebellar intraparenchymal hematoma measuring 5.1 x 3.7 x 3.3 cm. Surrounding vasogenic edema and mass effect with partial effacement of the 4th ventricle. No evidence of hydrocephalus. No enhancement within the mass. 7 mm rightward shift of the midline cerebellum. 2. Parenchymal volume loss and sequela of mild chronic microvascular ischemic changes. The findings were sent to the Radiology Results Communication Center at 4:40 pm on 08/04/2018to be communicated to a licensed caregiver. Discharge discussed with: patient - Time Spent with Patient Total time spent providing and/or coordinating discharge services: Greater than 30 minutes - Discharge Medications Home Medications: Tamsulosin HCl [Flomax] 0.4 mg PO DAILY 07/01/18 [History] Digoxin [Lanoxin] 0.25 mg PO DAILY #30 tablet 07/04/18 [Rx] Ferrous Sulfate 325 mg PO BIDWM 30 Days #60 tablet 07/04/18 [Rx] Metoprolol XL (24 HR) Succ [Toprol Xl] 50 mg PO BID 28 Days #120 tab.er.24h [Rx] Finasteride [Proscar] 5 mg PO DAILY tablet 08/04/18 [Rx] Allergies/Adverse Reactions: 3 Allergy/AdvReac Type Severity Reaction Status Date / Time No Known Allergies Allergy Verified 08/03/18 09:12 Date of admission: 08/03/18 17:24 Primary care physician: Herman Mayers DO Consults: 08/04/18 13:04 Consult to Urology [CONS] Routine Consulting Provider: [facility] Reason for Consult: hematuria and enlarge protsate Call Completed: Yes Discharging clinician: Danelle Damico Anticipated date of discharge: 08/04/18 - Constitutional Vitals: Temp Pulse Resp BP Pulse Ox 98.3 F 107 16 149/79 98 08/04/18 11:53 08/04/18 11:53 08/04/18 11:53 08/04/18 11:53 08/04/18 11:53 General appearance: Present: A&O X 3, no acute distress Exam: acute distress - Head Head exam: Present: atraumatic, normocephalic - Eye Eye exam: Present: conjuntiva pink, sclera anicteric Additional comments: Pupils reactive but not equal. - Neck Neck exam general surgery: Present: supple, trachea midline. Absent: lymphadenopathy - Respiratory Respiratory exam: Present: CTAB. Absent: accessory muscle use, rales, rhonchi, wheezes - Cardiovascular Cardiovascular exam: Present: RRR, +S1, +S2. Absent: diastolic murmur, gallop, rubs, systolic murmur - GI/Abdominal GI/Abdominal exam: Present: normal bowel sounds, soft, no peritoneal signs. Absent: distended, tenderness - Extremities Exam Extremities exam: Present: warm, radial pulses palpable and symmetrical. Absent : calf tenderness, cyanotic, pedal edema - Neurological Exam Neurological exam: Present: oriented X3. Absent: pronater drift, facial droop, speech deficit Additional comments: Pt has has decreased muscle strength and unsteady gait. Requiring moderate assist - Skin Skin exam: Present: dry, intact - Patient Status Disposition: Transfer Intermediate Care Fac Condition: Serious Overall status at discharge: patient is not back to baseline - Discharge Instructions Follow Up With: Yong Mayers DO [Primary Care Provider] - Forms: ED Satisfaction Letter - Diet and Activity Activity: as per physical therapy Diet: advance to your usual diet
--- NOTE | 2018-08-04 17:27 | Electrocardiograph Report ---
[address] [place] [address] Test Date: 2018-08-03 Pat Name: Kamron Reich Department: [id number] Room: 3A12 Gender: M Transcribing Operators Supervisor: : [id number] Requested By: Chaparro Avila Order Number: [id number] Reading MD: Latisha Eubanks Measurements Intervals [place] Rate: 103 P: MI: QRS: 25 QRSD: 88 T: QT: 280 QTc: 367 Interpretive Statements Atrial fibrillation Ventricular ectopy Nonspecific ST abnormalities Electronically Signed On 08-04-2018 17:25:59 EDT by Latisha Eubanks
[2018-08-04] MEDS ORDERED: 0.9 % Sodium Chloride 250 ML ONE ×2 (17:57→18:18)
[2018-08-04 19:07] VITALS: BP 147/80
[2018-08-05] MEDS ORDERED: Finasteride 5 MG TABLET PO SCH (09:00)
== END 2018-08-04 19:34 | disposition critical access hospital (66) | DRG 64 ==
LOC: EMEROOARM 08:40 → 3ANU 08:40
PROVIDERS: ADMIT Internal Medicine; ATTEND Internal Medicine